=== PATIENT | male | born 1995 | race Caucasian/White ===

== ENCOUNTER 2017-07-12 18:41 | Emergency (ER) | payer OTHER ==
[2017-07-12] MEDS ORDERED: ONDANSETRON DISINTEGRATING 4 MG TAB PO ONE (18:57)
--- NOTE | 2017-07-12 20:26 | EDPHY ---
H & P Time Seen by Provider: 07/12/17 19:18 HPI/ROS: HPI Head injury, neck pain. 22-year-old male by private vehicle with parents. This patient was skiing on Tuesday. He reports that he went off a 10 ft jump. When he landed his knees struck his forehead and he slid out. He denies loss of consciousness at that time. He presents to the emergency department complaining of a dull headache, nausea and vomiting today. He also reports that he had some tingling going down his right arm but states this has resolved now. Denies any other extremity pain. No other complaint. ROS: Constitutional: No fever, no chills. No weakness. Eyes: No discharge. No changes in vision. Respiratory: No cough. No shortness of breath. Cardiac: No chest pain, no palpitations. Gastrointestinal: No abdominal pain, no vomiting, no diarrhea. Genitourinary: No hematuria. Musculoskeletal: No back pain. No neck pain. No myalgias or arthralgias. Skin: No rashes. No lacerations or abrasions. Neurological: No headache. No focal weakness or altered sensation. Past medical history: Splenic rupture, tonsillectomy. Social history: Here with his parents. No alcohol. Nonsmoker. Physical Exam: General Appearance: Alert, no distress. Sunburn face. This patient is responding to questions appropriately and in full sentences. This patient appears well-hydrated and well-nourished. Head: Normocephalic atraumatic. Face: Facial bones are stable on palpation. Eyes: Pupils equal and round and reactive to light, no pallor or injection. No lid erythema or edema. ENT, Mouth: Mucous membranes moist. Dentition is intact. No malocclusion of the jaw. No tongue lacerations or abrasions. Pharynx is clear. The bilateral nasal canals are clear. No septal hematoma. Respiratory: There are no retractions, lungs are clear to auscultation with good air movement bilaterally. Chest wall is stable to AP and lateral palpation. Cardiovascular: Regular rate and rhythm. No murmur. Gastrointestinal: Abdomen is soft and nontender, no masses, bowel sounds normal. Neurological: Motor sensory function is intact in the bilateral upper and bilateral lower extremities. He has some very subtle protein purification scientist strength weakness on the left. Cranial nerves are normal. Cerebellar function intact. Skin: Warm and dry, no rashes. No lacerations, abrasions or contusions. Musculoskeletal: Neck is supple. The trachea is midline. Midline cervical pain at C2 and C5. No thoracic, lumbar or sacral tenderness on palpation. No flank tenderness on palpation. Extremities are symmetrical, full range of motion. All joints in the bilateral upper and bilateral lower extremities range without pain or impingement. No tenderness on palpation of the long bones in the bilateral upper and bilateral lower extremities. Psychiatric: No agitation. No depression. Database: EKG: Imaging: CT head without contrast: Negative. Results were discussed with staff radiologist Dr. Yoel Martin. CT cervical spine without contrast: Negative. Results were discussed with staff radiologist Dr. Yoel Martin. MRI of cervical spine: Negative. Results were discussed with staff radiologist Dr. Yoel Martin. Procedures: Emergency department course: Vital signs reviewed. He was hypertensive in triage. Afebrile. Vital signs otherwise normal. He was given 4 mg of ODT Zofran in triage. After my evaluation I discussed the need for CT imaging. He and his parents consent. 9:00 p.m., patient re-evaluated. Resting comfortably at this time. Results of CT imaging discussed with him and his parents. Need for MRI of cervical spine to evaluate for spinal cord injury without radiographic abnormality discussed. They endorse. 10:15 p.m., patient re-evaluated. Repeat neurologic Assessment is nonfocal. Results of MRI and all imaging reviewed with the patient and his parents. Cervical collar was radiographically and clinically cleared at this time. He feels comfortable going home and his parents feel comfortable taking him home. I will have him follow up with Neurology for re-evaluation and any further management in 2-3 days. Return to emergency department precautions reviewed with the parents. All their questions were answered. The patient was discharged in good condition. Differential Diagnosis: The differential diagnosis on this patient includes but is not limited to concussion syndrome, cervical strain. Fracture, subluxation, dislocation of the cervical spine, traumatic brain injury, myelopathy, radiculopathy unlikely. This represents a partial list of diagnoses considered. These considerations are based on history, physical exam, past history, reassessment and diagnostic testing. Smoking Status: Never smoked Constitutional: Initial Vital Signs Temperature (C) 37 C 07/12/17 18:54 Heart Rate 95 07/12/17 18:54 Respiratory Rate 17 07/12/17 18:54 Blood Pressure 184/84 H 07/12/17 18:54 O2 Sat (%) 98 07/12/17 18:54 O2 Delivery Mode Room Air Allergies/Adverse Reactions: acetaminophen [From Percocet] Allergy (Mild, Verified 07/12/17 18:52) oxycodone HCl [From Percocet] Allergy (Mild, Verified 07/12/17 18:52) SUNFLOWER SEEDS Allergy (Uncoded 07/12/17 18:53) Home Medications: Medication Instructions Recorded Adderall 10 MG (*) 07/12/17 Medical Decision Making - Diagnostics Imaging Results: Imaging Impressions Cervical Spine CT 07/12/17 20:18 Impression: No acute posttraumatic abnormality identified. If symptoms persist and clinical suspicion warrants, consider MRI. Findings discussed with Ginger Patel MD 07/12/[address] 07/12/17 20:18 Impression: No acute intracranial findings. Findings discussed with Ginger Patel MD 07/12/2017 at 2049. Cervical Spine MRI 07/12/17 20:51 impression: No acute findings in the cervical spine. Findings called to the ED on July 12, 2017 at 2143. - Data Points Medications Given: Discontinued Medications Ondansetron HCl (Zofran Odt) 2 - 4 mg PO EDNOW ONE Stop: 07/12/17 18:58 Last Admin: 07/12/17 19:01 Dose: 4 mg Departure - Departure Disposition: Home, Routine, Self-Care Clinical Impression: Cervical strain, acute, Head injury Condition: Good Instructions: Cervical Strain (ED), Head Injury (ED) Additional Instructions: Read and follow provided instructions. Follow-up with Neurology as discussed to further evaluate for concussion syndrome in 2-3 days. Call the office of Dr. Steve Juarez or Dr. Walker for appointment. Explained this is for an emergency department follow-up. Ibuprofen dosin mg every 6 hours with meals for the next 3 days only. Take only as needed for pain. No skiing or strenuous physical activity until cleared by Neurology. Return to the emergency department for worsening headache, loss of sensation or weakness in her extremities, vomiting or other serious concerns. Referrals: Navi Walker DO [Medical Doctor] - As per Instructions Steve Juarez MD [Medical Doctor] - As per Instructions
[2017-07-12 21:55] VITALS: BP 126/65
== END 2017-07-12 22:33 | disposition home or self-care (01) ==
DX: S09.90XA Unspecified injury of head, initial encounter (principal); S16.1XXA Strain of muscle, fascia and tendon at neck level, initial encounter; V00.328A Other snow-ski accident, initial encounter; Y99.8 Other external cause status; Y93.23 Activity, snow (alpine) (downhill) skiing, snowboarding, sledding, tobogganing and snow tubing